=== PATIENT | female | born 1990 | race Caucasian/White ===

== ENCOUNTER 2020-03-17 13:42 | Outpatient (AMBR) | payer MEDICAID, SELFPAY ==
--- NOTE | 2020-02-16 15:56 | PT.ODAYNRPT ---
PT Outpatient Daily Note Date of Service: 02/16/20 OP Daily Note Visit Reasons: right hip joint Outpatient Physical Therapy Treatment Date: 02/16/20 Subjective: My hip was on fire after last visit. She has been doing HEP with variable pain level and a feeling of pulling in the inguinal region. Objective: See F/S for therex Assessment: Improved therex tolerance since last visit on the bike and she was able to do 6' today vs 3' last time but overall high tissue irritability. Plan: Continue per POC Length of Time (minutes) of Treatment: 30 Minutes Office Procedures PT Procedures PT Date of Service: 02/16/20 Therapeutic Exercise 30 minutes: Yes
--- NOTE | 2020-03-10 15:34 | PT.ODAYNRPT ---
PT Outpatient Daily Note Date of Service: 03/10/20 OP Daily Note Visit Reasons: right hip joint Outpatient Physical Therapy Treatment Date: 03/10/20 Subjective: Overall better. She has been doing HEP with variable pain level and a feeling of pulling in the inguinal region. Objective: See F/S for therex Assessment: Improved therex tolerance since last visit on the bike and she was able to do 6' today with overall high tissue irritability. Plan: Continue per POC Length of Time (minutes) of Treatment: 30 Minutes Office Procedures PT Procedures PT Date of Service: 02/16/20 Therapeutic Exercise 30 minutes: Yes PT Procedures PT Date of Service: 03/10/20 Therapeutic Exercise 30 minutes: Yes
--- NOTE | 2020-03-17 16:23 | PT.ODAYNRPT ---
PT Outpatient Daily Note Date of Service: 03/17/20 OP Daily Note Visit Reasons: right hip joint Outpatient Physical Therapy Treatment Date: 03/17/20 Subjective: Increased hip soreness after last visit Objective: See F/S for therex Assessment: Moderate tissue irritability with [place] ball curls and lunging therex. Slow progress with goals due to pain in R hip. Plan: Continue per POC Length of Time (minutes) of Treatment: 30 Minutes Office Procedures PT Procedures PT Date of Service: 02/16/20 Therapeutic Exercise 30 minutes: Yes PT Procedures PT Date of Service: 03/10/20 Therapeutic Exercise 30 minutes: Yes PT Procedures PT Date of Service: 03/17/20 Therapeutic Exercise 30 minutes: Yes
== END 2020-03-17 23:59 | disposition home or self-care (01) ==
PROVIDERS: PCP Orthopaedic Surgery Sports Medicine; Referring Provider Orthopaedic Surgery Sports Medicine; Visit Provider Physician Assistant
DX: M25.551 Pain in right hip (principal); R26.2 Difficulty in walking, not elsewhere classified
CPT/HCPCS: 97110

== ENCOUNTER 2024-09-01 01:34 | Emergency (ER) | payer MEDICAID, SELFPAY ==
[2024-09-01 01:35] VITALS: BMI 28.2
== END 2024-09-01 02:51 | disposition left against medical advice (07) ==
LOC: SERX 03:01
PROVIDERS: Emergency Provider Emergency Medicine
DX: Z53.21 Procedure and treatment not carried out due to patient leaving prior to being seen by health care provider (principal)

== ENCOUNTER → 2025-01-01 | Outpatient (CLI) | payer MEDICAID, SELFPAY ==
--- NOTE | 2025-01-01 13:30 | XR_ITS ---
Examination: Breast ultrasound complete, bilateral Date and time of exam: January 01, 2025 1350 hours INDICATIONS: Preoperative breast surgery Technique: Real-time grayscale ultrasonographic imaging bilateral breasts, including all 4 quadrants as well as nipple retroareolar and axillary regions. Findings: Sonographic images right breast Retroareolar cyst 4 x 3 mm Sonographic images left breast 12:00 cyst 9 x 6 mm IMPRESSION: BI-RADS Category 2: Benign findings
== END | disposition home or self-care (01) ==
PROVIDERS: PCP Physician Assistant; Referring Provider Physician Assistant; Visit Provider Physician Assistant
DX: Z01.818 Encounter for other preprocedural examination (principal)
CPT/HCPCS: 76641

== ENCOUNTER 2025-02-08 12:47 | Emergency (ER) | payer MEDICAID, SELFPAY ==
[2025-02-08 12:49] VITALS: BMI 28.2
--- NOTE | 2025-02-08 13:03 | PD.EDRME ---
Rapid Medical Screening Exam RME Arrival date/time: 02/08/25 12:47 34-year-old female with no known medical history presents to the emergency room with a chief complaint of drainage, redness, warmth to her lower abdominal incision. Patient recently had skin removal surgery that was done in [place] on 12/14/2024. Since then the patient has had issues with infection to the same site and has been on multiple failed outpatient oral antibiotics I have greeted and performed a focused initial assessment of this patient. A comprehensive ED assessment and evaluation of the patient, analysis of all test results, and completion of the medical decision making process will be conducted by additional ED providers. Chief Complaint: General Adult/Misc Complain Vital signs reviewed by provider: Yes
[2025-02-08 14:08] LABS: Lactate (Lactic Acid) 1.3 mMol/L (0.4-2.0)
[2025-02-08 14:14] LABS: Basophils # (Auto) 0.0 Thou/mm3 (0.0-0.2); Basophils % (Auto) 0 % (0-2.5); Eosinophils # (Auto) 0.1 Thou/mm3 (0.0-0.5); Eosinophils % (Auto) 2 % (0-10); Hematocrit 36.1 % (36.0-46.0); Hemoglobin 12.0 g/dL (12.0-16.0); Immature Granulocytes Auto 0.02 Thou/mm3 (0.00-0.00); Lymphocytes # (Auto) 1.9 Thou/mm3 (1.0-4.8); Lymphocytes % (Auto) 26 % (10-50); Mean Corpuscular HGB Conc 33.2 g/dl (31.0-37.0); Mean Corpuscular Hemoglobin 31.4 pg (25.0-35.0); Mean Corpuscular Volume 95 fL (80-100); Monocytes # (Auto) 0.7 Thou/mm3 (0.0-0.8); Monocytes % (Auto) 9 % (0-12); Neutrophils # (Auto) 4.6 Thou/mm3 (1.8-7.7); Neutrophils % (Auto) 62 % (37-80); Nucleated Red Blood Cell # 0.00 Thou/mm3 (0.00-0.00); Nucleated Red Blood Cell % 0 /100 WBC (0); Platelet Count 251 Thou/mm3 (140-440); RDW Standard Deviation 42.7 fL (36.4-46.3); Red Blood Count 3.82 Miln/mm3 (4.00-5.20); White Blood Count 7.4 Thou/mm3 (3.6-11.0)
[2025-02-08 14:40] LABS: Alanine Aminotransferase 16 U/L (10-49); Albumin, Serum 4.2 gm/dL (3.5-5.0); Albumin/Globulin Ratio 2.1 (1.2-2.2); Alkaline Phosphatase 70 U/L (46-116); Anion Gap 9 (7-16); Aspartate Amino Transferase 17 U/L (0-34); BUN/Creatinine Ratio 14 Ratio (12-20); Bilirubin,Total 0.3 mg/dL (0.3-1.2); Blood Urea Nitrogen 10 mg/dL (9-23); Calcium 9.7 mg/dL (8.3-10.6); Calcium (Corrected) 9.7 mg/dL (8.5-10.1); Carbon Dioxide 25.7 mMol/L (20.0-31.0); Chloride 106 mMol/L (98-107); Creatinine (Component) 0.7 mg/dL (0.6-1.3); Estimated Creatinine Clearance 119.2 mL/min (>60); Globulin 2.0 gm/dL (2.3-3.5); Glucose 116 mg/dL (74-106); Osmolality,Calculated 281 (275-295); Potassium 4.6 mMol/L (3.4-5.1); Procalcitonin < 0.04 ng/ml (0.0-0.49); Sodium 141 mMol/L (136-145); Total Protein 6.2 gm/dL (5.7-8.2); eGFR > 60 See Note
[2025-02-08 22:11] VITALS: BP 116/88; PULSE 75; RESP 11; O2SAT 97
[2025-02-08 22:36] VITALS: BP 116/88; PULSE 74; RESP 16; TEMP 36.7; O2SAT 97
--- NOTE | 2025-02-08 22:39 | EDNOTE_ITS ---
ED General RME/HPI General Chief complaint: General Adult/Misc Complain Stated complaint: INFECTION LOWER ABD INCISION; FEVER Time Seen by Provider: 02/08/25 22:41 Arrival date/time: 02/08/25 12:47 RME / HPI RME / HPI narrative: 02/08/25 12:47 34-year-old female with no known medical history presents to the emergency room with a chief complaint of drainage, redness, warmth to her lower abdominal incision. Patient recently had skin removal surgery that was done in [place] on 12/14/2024. Since then the patient has had issues with infection to the same site and has been on multiple failed outpatient oral antibiotics I have greeted and performed a focused initial assessment of this patient. A comprehensive ED assessment and evaluation of the patient, analysis of all test results, and completion of the medical decision making process will be conducted by additional ED providers. Dr. Parham?sj Main ED Evaluation: 34yo female who is s/p abdominal rectus sheath diastasis and repair done in [place] on 01/13/25, was discharged home on antibiotics, who has since been on multiple PO antibiotics including Augmentin x2, Keflex, and most recently Bactrim here with pain along abdominal incision and reported postoperative necrosis. No fever or chills. Reports abdominal pain beneath the incision with a sense of fullness. No V/D. PMH unremarkable. PSH recent rectus sheath repair. No alcoholism or illicit drug abuse. Related Data Previous Rx's ?Medication ?Instructions ?Recorded albuterol sulfate 2.5 mg/3 mL 2.5 mg (3 mL) inhalation QID PRN 01/08/22 (0.083 %) solution for nebulization shortness of breat h or wheezing #90 mL azithromycin 250 mg tablet See Rx Instructions PO .COM PLEX #6 01/08/22 tabs naproxen 500 mg tablet (Naprosyn) 500 mg PO BID #30 ta bs 01/08/22 albuterol sulfate 90 mcg/actuation 2 puff inhalation Q ID #8.5 grams 05/29/22 aerosol inhaler ibuprofen 600 mg tablet 600 mg PO QID #30 tabs 05/29 Allergies Allergy/AdvReac Type Severity Reaction Status Date / Time latex Allergy Intermediate RASH AND Verified 02/08/25 12:52 ITCHING adhesive tape Allergy Blister Verified 02/08/25 12:52 Review of Systems Review of Systems Systems Reviewed: All systems reviewed, normal except as documented ED Exam Narrative Physical exam: GENERAL APPEARANCE: alert and oriented x 4, well-developed, well-nourished, nontoxic, no acute distress VITALS: All vitals were reviewed and the pulse ox is 97% on room air, which is normal according to my interpretation. HEENT: Normocephalic, atraumatic; pupils equal, round, reactive to light; EOMI; mucous membranes pink, moist; oropharynx clear NECK: Supple LUNGS: CTABL; no wheezes, no rales, no rhonchi HEART: Regular rate, regular rhythm; normal S1, S2; no murmurs ABDOMEN: non distended; normal BS; soft, no tenderness, no guarding BACK: no CVA tenderness EXTREMITIES: atraumatic; no edema NEUROLOGIC: awake; alert and oriented x4; cranial nerves II-XII grossly intact; no focal sensory or motor deficits PSYCHIATRIC: appropriate mood and affect SKIN: warm, dry; horizontal incision extending from the mid axillary line bilat erally towards the center of the suprapubic region with areas of granulating tissue and erythema, but no gross perulent drainage; no dehiscence; fluctuance noted below the suture line with mild tenderness Course Quality Measures none Orders Category Date Time Status CT Screening NOW Care 02/08/25 23:[address] abdomen pelvis w con Stat Exams 02/08/25 23:00 Taken Blood Culture (Lab) Stat Lab 02/08/25 13:49 Received CBC Stat Lab 02/08/25 13:43 Completed CBC [CBC] Stat Lab 02/08/25 23:25 Completed CMP [Comprehensive Metabolic Panel] Stat Lab 02/08/25 13:43 Completed CMP [Comprehensive Metabolic Panel] Stat Lab 02/08/25 23:25 Completed HCG,Qualitative Serum Stat Lab 02/08/25 23:25 Completed Lactate (Lactic Acid) Stat Lab 02/08/25 13:43 Completed Procalcitonin Stat Lab 02/08/25 13:43 Completed Urinalysis, C/S if Indicated Stat Lab 02/08/25 00:53 Completed Urine Culture Stat Lab 02/08/25 00:53 Received Wound Culture and Gram Stain Stat Lab 02/08/25 13:08 Results Vital Signs Vital signs: Vital Signs Pulse Rate 75 02/08/25 22:11 Respiratory Rate 11 L 02/08/25 22:11 Blood Pressure 116/88 H 02/08/25 22:11 Pulse Oximetry (%) 97 02/08/25 22:11 Discharge Plan Plan Patient Disposition: HOME (Self Care) Prescriptions/Referrals Prescriptions/Med Rec: No Action azithromycin 250 mg tablet See Rx Instructions .ROUTE .COMPLEX Qty: 6 0RF Rx Instructions: For 250 mg dose pack: take 500 mg today (day 1), then 250 mg for 4 days (days 2-5) albuterol sulfate 2.5 mg /3 mL (0.083 %) solution for nebulization 2.5 mg inhalation QID PRN (Reason: shortness of breath or wheezing) Qty: 90 0RF naproxen [Naprosyn] 500 mg tablet 500 mg PO BID Qty: 30 0RF albuterol sulfate 90 mcg/actuation HFA aerosol inhaler 2 puff inhalation QID Qty: 8.5 0RF ibuprofen 600 mg tablet 600 mg PO QID Qty: 30 0RF Referrals: Susan Machado COMPLIANCE NURSE [Primary Care Provider] - In 1 week Problem List Clinical Impression: Postoperative seroma, UTI (urinary tract infection), Encounter for post surgical wound check Patient/Caregiver Discharge Instructions Discharge Activity: activity as tolerated Diet Instructions: Force fluids/medication as directed. Education Materials: Urinary Tract Infections in Women Additional Instructions: Discontinue oral antibiotics. Apply warm compresses and utilize abdominal binder for support. Topical antibiotics as directed. Follow-up with primary care doctor in 3 to 5 days return if worsening. Print Language: Austrian Stand Alone Forms: Makayla Award Info., Patient Portal Info Letter MDM Narrative [facility] hospital course: Scribe Attestation: 02/08/25 - Sari Romano am scribing for and in the presence of Dr. Parham. 34yo female who is s/p abdominal rectus sheath diastasis and repair done in [place] on 01/13/25, was discharged home on antibiotics, who has since been on multiple PO antibiotics including Augmentin x2, Keflex, and most recently Bactrim here with pain along abdominal incision and reported postoperative necrosis. No fever or chills. Please see PE findings. Lab markers including CBC, chemistries, and UA unremarkable excluding mild UTI. Gram stain of scant discharge from the abdomen was performed and was negative for WBCs or bacteria. Patient is nontoxic without signs of underlying sepsis. Will treat empirically with one dose of Rocephin in an effort to clear urine, as patient has been on numerous antibiotics. Will discontinue oral antibiotics in an effort to prevent C. difficile. Patient referred for CT abdomen pelvis without discrete abscess, although shows postoperative seromas within the lateral gutters. Patient is considered stable for discharge after extended period of observation. Will place patient on topical bacitracin and instruct her to follow-up with PMD in 3-5 days. Clinical Information Provided by patient Medical Records Reviewed [facility] (Per chart review, patient has no relevant previous ED visits.) Meds/Rx Considered, not Ordered None Labs/Rad/Tests considered, not Ordered None Chronic Illness/Social Conditions which may negatively complicate care or outcome(s)-explain: None or not applicable EKG EKG not done Lab Interpretation Labs: interpreted by in Imaging Imaging interpretation: interpreted by in Radiology reports / interpretation(s): Telerad Preliminary Report Draft Patient: ART LAY Record#: [id number] Birthdate: 1990 Age/Sex: 34 / F Location: [facility] Attending Dr: Ordering Physician: Date of Service: Procedure(s): Accession Number(s): cc: ~ CT scan of the abdomen and pelvis with intravenous contrast (axial sections with sagittal and coronal reformats) February 09, 2025 0116 hours Clinical History: r/o abscess formation No prior study is available for comparison. Findings: The lung bases are clear. The gallbladder is surgically absent. The liver, pancreas, spleen, kidneys and adrenals are unremarkable. No evidence of bowel obstruction. A moderate amount of fecal matter is noted in a colon. The appendix is not visualized and may be surgically absent. There is no mesenteric or retroperitoneal adenopathy. The urinary bladder is unremarkable. There is no free fluid or free air. There is subcutaneous soft tissue induration in the abdominal and pelvic wall, likely representing a postoperative scar. There is a subcutaneous fluid collection, measuring 4 x 1.5 cm in the abdominal wall. There is another fluid collection, measuring 3 x 2 cm in the pelvic wall. The osseous structures are unremarkable. Impression: No evidence of bowel obstruction, free air or abscess. Fluid collections in the abdominal and pelvic cameron, which may represent postoperative seromas. However the possibility of infection / abscess cannot be excluded. Recommend clinical correlation. Other findings as described above. Report Electronically Signed By: Mitchell Rosario 02/09/2025 4:06:49 AM [EST] Medication Administration(s) none Diagnosis Differential diagnosis: abscess, seroma, postoperative infection Most likely dx, and/or detailed dx discussion: see clinical impression above Dispositon Disposition: Discharge Home
[2025-02-08 23:00] VITALS: BP 106/86; PULSE 70; RESP 13; O2SAT 98
--- NOTE | 2025-02-08 23:00 | XR_ITS ---
Examination: CT abdomen with intravenous contrast CT pelvis with intravenous contrast 2-D coronal reconstructions 2-D sagittal reconstructions Date and time of exam:February 09, 2025, 0116 hours, comparison May 07, 2020. INDICATIONS: Infection abdominal pain at incision site in the abdomen today, surgery January 13, 2025 CTDI: vol (mGy) 9.18 DLP: (mGycm) 515. Technique: Multiple axial sections of the abdomen and pelvis have been obtained. 64 slice high-resolution scanner used. 3 mm axial sections have been obtained, post intravenous injection 60 cc Isovue 370 2-D sagittal, coronal reconstructions obtained. Low dose protocols were performed. One or more of the following dose reduction techniques were used; automated exposure control, adjustment of the mA and/or KV according to patient size, use of iterative reconstruction technique. Findings: No focal liver or splenic lesions. Absent gallbladder. No pancreatic or adrenal mass. No renal or ureteral calculi, no hydronephrosis. Aorta normal size. No bowel obstruction. No pericecal inflammatory change. Retroverted uterus. Urinary bladder is intact. Edema in the anterior abdominal wall subcutaneous fat. Fluid collection 4 x 1.5 cm anterior abdominal wall, axial image 111 Fluid collection subcutaneous tissue anterior pelvic wall 3 x 2 cm, image 199 IMPRESSION: No abdominal or pelvic abscess. Fluid collections in the anterior abdominal wall and anterior pelvic wall as above, consider seromas, hematomas, abscess less likely but not excluded
[2025-02-08 23:40] LABS: Basophils # (Auto) 0.0 Thou/mm3 (0.0-0.2); Basophils % (Auto) 0 % (0-2.5); Eosinophils # (Auto) 0.1 Thou/mm3 (0.0-0.5); Eosinophils % (Auto) 2 % (0-10); Hematocrit 33.9 % (36.0-46.0); Hemoglobin 11.6 g/dL (12.0-16.0); Immature Granulocytes Auto 0.02 Thou/mm3 (0.00-0.00); Lymphocytes # (Auto) 2.1 Thou/mm3 (1.0-4.8); Lymphocytes % (Auto) 27 % (10-50); Mean Corpuscular HGB Conc 34.2 g/dl (31.0-37.0); Mean Corpuscular Hemoglobin 31.7 pg (25.0-35.0); Mean Corpuscular Volume 93 fL (80-100); Monocytes # (Auto) 0.7 Thou/mm3 (0.0-0.8); Monocytes % (Auto) 9 % (0-12); Neutrophils # (Auto) 4.7 Thou/mm3 (1.8-7.7); Neutrophils % (Auto) 61 % (37-80); Nucleated Red Blood Cell # 0.00 Thou/mm3 (0.00-0.00); Nucleated Red Blood Cell % 0 /100 WBC (0); Platelet Count 241 Thou/mm3 (140-440); RDW Standard Deviation 42.3 fL (36.4-46.3); Red Blood Count 3.66 Miln/mm3 (4.00-5.20); White Blood Count 7.7 Thou/mm3 (3.6-11.0)
[2025-02-08 23:50] LABS: HCG,Qualitative Serum Negative
[2025-02-08 23:58] LABS: Alanine Aminotransferase 16 U/L (10-49); Albumin, Serum 4.3 gm/dL (3.5-5.0); Albumin/Globulin Ratio 2.3 (1.2-2.2); Alkaline Phosphatase 63 U/L (46-116); Anion Gap 9 (7-16); Aspartate Amino Transferase 17 U/L (0-34); BUN/Creatinine Ratio 13 Ratio (12-20); Bilirubin,Total 0.5 mg/dL (0.3-1.2); Blood Urea Nitrogen 9 mg/dL (9-23); Calcium 9.5 mg/dL (8.3-10.6); Calcium (Corrected) 9.5 mg/dL (8.5-10.1); Carbon Dioxide 26.7 mMol/L (20.0-31.0); Chloride 105 mMol/L (98-107); Creatinine (Component) 0.7 mg/dL (0.6-1.3); Estimated Creatinine Clearance 119.2 mL/min (>60); Globulin 1.9 gm/dL (2.3-3.5); Glucose 87 mg/dL (74-106); Osmolality,Calculated 278 (275-295); Potassium 4.2 mMol/L (3.4-5.1); Sodium 141 mMol/L (136-145); Total Protein 6.2 gm/dL (5.7-8.2); eGFR > 60 See Note
[2025-02-09 00:03] VITALS: PULSE 66; RESP 14; O2SAT 99
[2025-02-09 01:00] VITALS: BP 116/75; PULSE 70; RESP 16; O2SAT 97
[2025-02-09 01:01] LABS: Collection Type, Urine Clean Catch
[2025-02-09 01:09] LABS: Bilirubin,Urine Negative (Negative); Blood,Urine 3+ (Negative); Clarity,Urine Clear (Clear/Hazy); Color,Urine Yellow (Lt Yel-Yel); Glucose, Urine Negative (Negative); Hyaline Casts,Urine < 1 /hpf (0-1); Ketones,Urine Negative (Negative); Leukocyte Esterase,Urine Positive (Negative); Nitrite,Urine Negative (Negative); PH,Urine 6.0 (5.0-7.0); Protein,Urine Trace (Neg - Trace); RBC,Urine 303 /hpf (0-3); Specific Gravity,Urine 1.023 (1.001-1.035); Squamous Epithelial Cell,Urine 2 /hpf (0-5); Urobilinogen,Urine Negative mg/dL (0.0-1.0); WBC,Urine 19 /hpf (0-5)
[2025-02-09 01:14] LABS: Culture Indicated,Urine Yes
--- NOTE | 2025-02-09 04:07 | PRELIM_ITS ---
CT scan of the abdomen and pelvis with intravenous contrast (axial sections with sagittal and coronal reformats) February 09, 2025 0116 hours Clinical History: r/o abscess formation No prior study is available for comparison. Findings: The lung bases are clear. The gallbladder is surgically absent. The liver, pancreas, spleen, kidneys and adrenals are unremarkable. No evidence of bowel obstruction. A moderate amount of fecal matter is noted in a colon. The appendix is not visualized and may be surgically absent. There is no mesenteric or retroperitoneal adenopathy. The urinary bladder is unremarkable. There is no free fluid or free air. There is subcutaneous soft tissue induration in the abdominal and pelvic wall, likely representing a postoperative scar. There is a subcutaneous fluid collection, measuring 4 x 1.5 cm in the abdominal wall. There is another fluid collection, measuring 3 x 2 cm in the pelvic wall. The osseous structures are unremarkable. Impression: No evidence of bowel obstruction, free air or abscess. Fluid collections in the abdominal and pelvic cameron, which may represent postoperative seromas. However the possibility of infection / abscess cannot be excluded. Recommend clinical correlation. Other findings as described above. Report Electronically Signed By: Mitchell Rosario 02/09/2025 4:06:49 AM [EST]
[2025-02-09] MEDS: cefTRIAXone/D5w 1gm IV premix 1 GM/50 ML BAG IV (05:27)
[2025-02-09 06:06] VITALS: PULSE 70; RESP 19; TEMP 37.1; O2SAT 98
== END 2025-02-09 06:06 | disposition home or self-care (01) ==
PROVIDERS: Nurse Practitioner Family; Emergency Provider Emergency Medicine; PCP Nurse Practitioner Family
DX: L76.34 Postprocedural seroma of skin and subcutaneous tissue following other procedure (principal); N39.0 Urinary tract infection, site not specified
CPT/HCPCS: 36415; 74177; 80053; 81001; 83605; 84145; 84703; 85025; 87040; 87070; 87077; 87086; 87186; 87205; 96365; 99284; A4649; J0696; Q9967

== ENCOUNTER → 2025-02-25 | Outpatient (CLI) | payer OTHER, SELFPAY ==
--- NOTE | 2025-02-25 14:30 | XR_ITS ---
Examination: MRI cervical spine without intravenous contrast Date and time of exam: February 25, 2025 1447 hours INDICATIONS: Neck pain radiating down the entire right arm paresthesias in the right hand weakness 6 years post lifting injury at work COMPARISON: January 19, 2022 Technique: Multiple axial and sagittal sections of the cervical spine to been obtained. T2 weighted sagittal sections, TR 3, 270, TE 117 T1-weighted sagittal sections, TR 500, TE 11 T1-weighted axial sections, TR 607, TE 12, axial sections TR 18, TE 27 and T2 weighted transverse sections, TR 3920, TE 122. Findings: Adequate alignment cervical vertebral bodies on the lateral view No cervical fracture. Intact odontoid No localized enlargement cervical cord. C2-C3 no disc protrusion C3-C4 no disc protrusion C4-C5 2 mm central osteophyte disc complex, mild left neural foraminal stenosis C5-C6 2 mm central osteophyte disc complex, mild bilateral neural foraminal stenosis C6-C7 mild right neural foraminal stenosis C7-T1 moderate bilateral neural foraminal stenosis IMPRESSION: C4-C5 mild left neural foraminal stenosis C5-C6 mild bilateral neural foraminal stenosis C6-C7 mild right neural foraminal stenosis
--- NOTE | 2025-02-25 15:00 | XR_ITS ---
Examination: MRI lumbar spine without contrast Date and time of exam: February 25, 2025 1508 hours INDICATIONS: Lower back pain radiating down both legs weakness in the right leg leg paresthesias beginning 6 years ago post lifting injury at work Technique: Multiple MRI axial and sagittal sections lumbar spine. Sagittal T2-weighted images, TR 3500, TE 118 T1 weighted transverse sections, TR 688 T8.5, T2-weighted sagittal sections T1 weighted sagittal sections TR 621, TE 30 T2 axial sections, TR 4, 190, TE 84. Findings: Adequate alignment lumbar vertebral bodies Disc desiccation mild disc narrowing L4-L5 No spondylolisthesis Normal marrow signal lumbar vertebral bodies L5-S1 no disc protrusion L4-L5 4 mm central lumbar disc bulge indenting the ventral margin thecal sac Annular posterior central disc tear at the L4-L5 level More cephalad levels unremarkable IMPRESSION: L4-L5 4 mm central lumbar disc bulge L4-L5 annular posterior central disc tear
--- NOTE | 2025-02-25 15:37 | XR_ITS ---
Examination: Cervical spine 4 views Technique: AP, lateral, standing lateral flexion, standing lateral extension, 4 views Date and time: February 25, 2025 1558 hrs. Indications: Work injury 7 years ago to the neck with neck pain. Findings: Satisfactory alignment cervical vertebral bodies Adequate range of motion, flexion and extension No fracture No arthritic change Impression: No fracture No arthritic change Please see the MRI cervical spine report today
--- NOTE | 2025-02-25 15:37 | XR_ITS ---
Examination: Lumbar spine 4 views Technique: Lumbar spine AP, lateral, standing lateral flexion, standing lateral extension Exam date and time: February 25, 2025 1558 hrs. Indications: Injury to lower back several years ago with lower back pain. Findings: Adequate alignment lumbar vertebral bodies on the lateral view Mild diffuse lumbar disc narrowing No spondylolisthesis Decreased range of motion to flexion and extension Impression: No lumbar fracture. Mild diffuse lumbar disc narrowing.
== END | disposition home or self-care (01) ==
LOC: SMRI 13:45
PROVIDERS: Referring Provider Specialist; Visit Provider Specialist
DX: S39.012A Strain of muscle, fascia and tendon of lower back, initial encounter (principal); S31.010A Laceration without foreign body of lower back and pelvis without penetration into retroperitoneum, initial encounter; X58.XXXA Exposure to other specified factors, initial encounter; M48.02 Spinal stenosis, cervical region; M51.360 Other intervertebral disc degeneration, lumbar region with discogenic back pain only; M48.061 Spinal stenosis, lumbar region without neurogenic claudication
CPT/HCPCS: 72040; 72110; 72141; 72148

== ENCOUNTER → 2025-03-11 | Outpatient (CLI) | payer MEDICAID, SELFPAY | END | disposition home or self-care (01) | PROVIDERS: PCP Physician Assistant; Referring Provider Physician Assistant; Visit Provider Student in an Organized Health Care Education/Training Program | DX: T81.89XA Other complications of procedures, not elsewhere classified, initial encounter (principal); S31.109D Unspecified open wound of abdominal wall, unspecified quadrant without penetration into peritoneal cavity, subsequent encounter; X58.XXXD Exposure to other specified factors, subsequent encounter; K59.09 Other constipation; M79.7 Fibromyalgia; F41.9 Anxiety disorder, unspecified; J45.998 Other asthma; F17.200 Nicotine dependence, unspecified, uncomplicated; M10.9 Gout, unspecified; F50.20 Bulimia nervosa, unspecified | CPT/HCPCS: 97597; 99213; A9270; G0463 ==

== ENCOUNTER 2025-03-13 16:22 | Emergency (ER) | payer MEDICAID, SELFPAY ==
[2025-03-13 16:23] VITALS: BMI 28.2
[2025-03-13 16:37] VITALS: BP 137/81; PULSE 89; RESP 18; TEMP 37.2; O2SAT 98
--- NOTE | 2025-03-13 16:47 | XR_ITS ---
Examination: CT abdomen with intravenous contrast CT pelvis with intravenous contrast 2-D coronal reconstructions 2-D sagittal reconstructions Date and time of exam:March 13, 2025, 1927 hrs., Comparison February 09, 2025 Indications: Post abdominal surgery, large palpable lumps on the abdomen 3 months. CTDI: vol (mGy) 18.83 DLP: (mGycm) 812 Technique: Multiple axial sections of the abdomen and pelvis have been obtained. 64 slice high-resolution scanner used. 3 mm axial sections have been obtained, post intravenous injection 60 cc Isovue-370 2-D sagittal, coronal reconstructions obtained. Low dose protocols were performed. One or more of the following dose reduction techniques were used; automated exposure control, adjustment of the mA and/or KV according to patient size, use of iterative reconstruction technique. Findings: No focal liver or splenic lesion Absent gallbladder No pancreatic or adrenal mass No renal or ureteral calculi, no hydronephrosis No bowel obstruction Normal appendix No diverticulitis No pelvic mass Cellulitis pattern in the anterior pelvic wall but no current significant fluid collection Impression: The fluid collection in the anterior pelvic wall on the February 09, 2025 exam is no longer identified There is a mild cellulitis pattern in the anterior pelvic wall
--- NOTE | 2025-03-13 16:50 | EDNOTE_ITS ---
ED Abdominal Pain RME/HPI General Chief Complaint: Abdominal Pain Stated complaint: MID ABD PAIN X1 MONTH Time seen by provider: 03/13/25 16:31 Arrival date/time: 03/13/25 16:22 RME / HPI RME / HPI narrative: 34-year-old female patient came in for evaluation regarding mid abdominal pain. She has been having mid abdominal pain for at least a month now getting worse today, patient think he pulled an abdominal muscle again. Patient had a surgery done in [place] for abdominoplasty. 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 Patient denies any fever denies any vomiting denies any other complaints no medication was taken prior to ER visit. Related Data Previous Rx's ?Medication ?Instructions ?Recorded albuterol sulfate 2.5 mg/3 mL 2.5 mg (3 mL) inhalation QID PRN 01/08/22 (0.083 %) solution for nebulization shortness of breat h or wheezing #90 mL azithromycin 250 mg tablet See Rx Instructions PO .COM PLEX #6 01/08/22 tabs naproxen 500 mg tablet (Naprosyn) 500 mg PO BID #30 ta bs 01/08/22 albuterol sulfate 90 mcg/actuation 2 puff inhalation Q ID #8.5 grams 05/29/22 aerosol inhaler ibuprofen 600 mg tablet 600 mg PO QID #30 tabs 05/29 acetaminophen 300 mg-codeine 30 mg 1 tab PO Q8H PRN pa in #21 tabs 03/13/25 tablet Allergies Allergy/AdvReac Type Severity Reaction Status Date / Time latex Allergy Intermediate RASH AND Verified 03/13/25 16:28 ITCHING adhesive tape Allergy Blister Verified 03/13/25 16:28 Review of Systems Review of Systems Narrative Review of Systems: Review of system reviewed and within normal limits except mentioned in HPI ED Exam Narrative Physical exam: VITAL SIGNS: Reviewed. GENERAL APPEARANCE: Alert and interactive, follows commands, no acute distress, HEAD AND FACE: Non-traumatic. ENT: PERRL, pink conjunctivitis, eyelid no trauma, Mucous membrane moist. NECK: Supple, nontender, no nuchal rigidity. ABDOMEN: Soft, positive bowel sounds, nondistended, no guarding, mid abdominal wall tenderness no redness noted, no rebound, no masses, she does not want me to see her lower abdominal wall infection or wound chronic. RECTAL: Deferred. GENITAL: Deferred. NEUROLOGICAL: Gross motor function intact sensory function intact, Appropriate for age. MUSCULOSKELETAL: low back nontender, full range of motion. EXTREMITIES: Nontender, full range of motion. SKIN: Color pink, dry, no rash, no lacerations, no abrasions, no contusions. LYMPHATICS: Deferred. Course Quality Measures none Orders Category Date Time Status CT Screening NOW Care 03/13/25 16:48 Active Insert IV NOW Care 03/13/25 19:[address] abdomen pelvis w con Stat Exams 03/13/25 16:47 Completed CBC [CBC] Stat Lab 03/13/25 17:05 Completed CMP [Comprehensive Metabolic Panel] Stat Lab 03/13/25 17:05 Completed HCG Qualitative,Urine Stat Lab 03/13/25 17:21 Completed Lipase Stat Lab 03/13/25 17:05 Completed UA, C/S IF [Urinalysis, C/S if Indicated] Stat Lab 03/13/25 17:21 Completed Ketorolac Inj [Toradol Inj] Med 03/13/25 16:57 Discontinued 30 mg IM X1 ONE Ketorolac Inj [Toradol Inj] Med 03/13/25 16:48 Discontinued 30 mg IVP X1 ONE Vital Signs Vital signs: Vital Signs Temperature 98.9 F 03/13/25 16:37 Pulse Rate 89 03/13/25 16:37 Respiratory Rate 18 03/13/25 16:37 Blood Pressure 137/81 H 03/13/25 16:37 Pulse Oximetry (%) 98 03/13/25 16:37 Oxygen Delivery Method CPAP 03/13/25 16:37 Abdominal Pain [facility] Narrative [facility] Narrative:: 34-year-old female patient came in for evaluation regarding mid abdominal pain. She has been having mid abdominal pain for at least a month now getting worse today, patient think he pulled an abdominal muscle again. Patient had a surgery done in [place] for abdominoplasty. 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 Patient denies any fever denies any vomiting denies any other complaints no medication was taken prior to ER visit. Patient's workup today all came back with no leukocytosis, urinalysis is a contaminated urine sample. CT scan of the abdomen and pelvis showed The fluid collection in the anterior pelvic wall on the February 09, 2025 exam is no longer identified There is a mild cellulitis pattern in the anterior pelvic wall Patient was given a copy of her CT scan results. Patient was advised to continue or finish the clindamycin that was prescribed by PCP earlier. Patient was also advised to continue doing dressing with triple antibiotic. Patient was also advised if she can follow-up with her surgeon in [place]. I also told her if she can ask her PCP to do outpatient MRI of the abdominal wall. Patient agrees with the plan. Stable for discharge home Patient data External records reviewed:: None Clinical information provided by:: patient Social determinants that could affect healthcare access:: none Patient has the following chronic illnesses:: Status post recent abdominoplasty How is presenting disease/condition affected by chronic disease/condition?: no chronic disease Evaluation data The following diagnostics were reviewed and interpreted by me:: lab results and radiology exam(s) Lab and/or radiology exams considered but not ordered:: None Interpretation Summary: See results MDM Medications / Prescriptions Medications or Prescriptions considered but not ordered:: None Medication administrations:: Medication Administration History Discontinued Medications Ketorolac Tromethamine (Ketorolac Inj 30 Mg/Ml Vial) 30 mg IVP X1 ONE Stop: 03/13/25 16:49 Last Admin: 03/13/25 17:00 Dose: Not Given Documented By: SANDRA Non-Admin Reason: Cancelled by Provider Ketorolac Tromethamine (Ketorolac Inj 30 Mg/Ml Vial) 30 mg IM X1 ONE Stop: 03/13/25 16:58 Last Admin: 03/13/25 17:02 Dose: 30 mg Documented By: SANDRA Comments: PT STATES NOT Toradol IM Consultations Consultation(s) initiated? 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 Discharge instructions specifically effects, indications for sooner follow up or return to the emergency department, and the expected course of current diagnosis. Patient condition: Stable Discharge Plan Plan Patient Disposition: HOME (Self Care) Discharge Disposition comment: Stable Prescriptions/Referrals Prescriptions/Med Rec: New acetaminophen-codeine 300-30 mg tablet 1 tab PO Q8H PRN (Reason: pain) Qty: 21 0RF No Action azithromycin 250 mg tablet See Rx Instructions .ROUTE .COMPLEX Qty: 6 0RF Rx Instructions: For 250 mg dose pack: take 500 mg today (day 1), then 250 mg for 4 days (days 2-5) albuterol sulfate 2.5 mg /3 mL (0.083 %) solution for nebulization 2.5 mg inhalation QID PRN (Reason: shortness of breath or wheezing) Qty: 90 0RF naproxen [Naprosyn] 500 mg tablet 500 mg PO BID Qty: 30 0RF albuterol sulfate 90 mcg/actuation HFA aerosol inhaler 2 puff inhalation QID Qty: 8.5 0RF ibuprofen 600 mg tablet 600 mg PO QID Qty: 30 0RF Referrals: No Primary/Family,Physician [Primary Care Provider] - In 1 week Problem List Clinical Impression: Abdominal wall pain, Surgical wound present Patient/Caregiver Discharge Instructions Discharge Activity: activity as tolerated Education Materials: Abdominal Pain Additional Instructions: Thank you for the opportunity for serving you today. You are stable for discharged . You are advised to: Follow-up with your PCP in 1 to 2 days Return to ED for worsening of symptoms Increase oral fluids Take medication as prescribed Finish your antibiotic that was prescribed earlier by your doctor Continue daily dressing with antibiotic cream Ask your PCP to do outpatient MRI of your abdominal wall to rule out muscle diastasis . If possible pls follow-up with your plastic surgeon in [place] Print Language: Albanian Stand Alone Forms: Makayla Award Info., Patient Portal Info Letter MARVEL/YONAS Supervising Physician MARVEL/YONAS Supervising Physician: MD Rosalino
[2025-03-13] MEDS: KETOROLAC INJ 30 MG/ML VIAL IM (17:02)
[2025-03-13 17:23] LABS: Basophils # (Auto) 0.0 Thou/mm3 (0.0-0.2); Basophils % (Auto) 0 % (0-2.5); Eosinophils # (Auto) 0.1 Thou/mm3 (0.0-0.5); Eosinophils % (Auto) 2 % (0-10); Hematocrit 38.0 % (36.0-46.0); Hemoglobin 12.9 g/dL (12.0-16.0); Immature Granulocytes Auto 0.03 Thou/mm3 (0.00-0.00); Lymphocytes # (Auto) 2.4 Thou/mm3 (1.0-4.8); Lymphocytes % (Auto) 29 % (10-50); Mean Corpuscular HGB Conc 33.9 g/dl (31.0-37.0); Mean Corpuscular Hemoglobin 31.2 pg (25.0-35.0); Mean Corpuscular Volume 92 fL (80-100); Monocytes # (Auto) 0.6 Thou/mm3 (0.0-0.8); Monocytes % (Auto) 7 % (0-12); Neutrophils # (Auto) 5.2 Thou/mm3 (1.8-7.7); Neutrophils % (Auto) 62 % (37-80); Nucleated Red Blood Cell # 0.00 Thou/mm3 (0.00-0.00); Nucleated Red Blood Cell % 0 /100 WBC (0); Platelet Count 258 Thou/mm3 (140-440); RDW Standard Deviation 39.6 fL (36.4-46.3); Red Blood Count 4.14 Miln/mm3 (4.00-5.20); White Blood Count 8.4 Thou/mm3 (3.6-11.0)
[2025-03-13 17:41] LABS: Collection Type, Urine Clean Catch
[2025-03-13 17:42] LABS: Alanine Aminotransferase 33 U/L (10-49); Albumin, Serum 4.4 gm/dL (3.5-5.0); Albumin/Globulin Ratio 2.0 (1.2-2.2); Alkaline Phosphatase 86 U/L (46-116); Anion Gap 8 (7-16); Aspartate Amino Transferase 16 U/L (0-34); BUN/Creatinine Ratio 17 Ratio (12-20); Bilirubin,Total 0.3 mg/dL (0.3-1.2); Blood Urea Nitrogen 10 mg/dL (9-23); Calcium 9.6 mg/dL (8.3-10.6); Calcium (Corrected) 9.6 mg/dL (8.5-10.1); Carbon Dioxide 29.5 mMol/L (20.0-31.0); Chloride 107 mMol/L (98-107); Creatinine (Component) 0.6 mg/dL (0.6-1.3); Estimated Creatinine Clearance 139.1 mL/min (>60); Globulin 2.2 gm/dL (2.3-3.5); Glucose 114 mg/dL (74-106); Lipase 40 U/L (12-53); Osmolality,Calculated 286 (275-295); Potassium 4.6 mMol/L (3.4-5.1); Sodium 144 mMol/L (136-145); Total Protein 6.6 gm/dL (5.7-8.2); eGFR > 60 See Note
[2025-03-13 17:59] LABS: Bacteria,Urine 1+; Bilirubin,Urine Negative (Negative); Blood,Urine Negative (Negative); Clarity,Urine Turbid (Clear/Hazy); Color,Urine Yellow (Lt Yel-Yel); Culture Indicated,Urine Contaminated; Glucose, Urine Negative (Negative); Ketones,Urine Negative (Negative); Leukocyte Esterase,Urine Positive (Negative); Nitrite,Urine Negative (Negative); PH,Urine 7.0 (5.0-7.0); Protein,Urine 1+ (Neg - Trace); RBC,Urine 5 /hpf (0-3); Specific Gravity,Urine 1.031 (1.001-1.035); Squamous Epithelial Cell,Urine 50 /hpf (0-5); Transitional Epi Cells,Urine 2 /hpf (0-5); Urobilinogen,Urine 2.0 mg/dL (0.0-1.0); WBC,Urine 120 /hpf (0-5)
[2025-03-13 19:07] LABS: HCG Qualitative,Urine Negative
== END 2025-03-13 21:35 | disposition home or self-care (01) ==
PROVIDERS: Nurse Practitioner Family; Emergency Provider Emergency Medicine
DX: T81.89XA Other complications of procedures, not elsewhere classified, initial encounter (principal); R10.9 Unspecified abdominal pain; Y83.8 Other surgical procedures as the cause of abnormal reaction of the patient, or of later complication, without mention of misadventure at the time of the procedure
CPT/HCPCS: 36415; 74177; 80053; 81001; 81025; 83690; 85025; 96372; 99284; A4649; J1885; Q9967

== ENCOUNTER → 2025-03-18 | Outpatient (CLI) | payer MEDICAID, SELFPAY | END | disposition home or self-care (01) | LOC: SWHD 09:17 | PROVIDERS: PCP Physician Assistant; Referring Provider Physician Assistant; Visit Provider Student in an Organized Health Care Education/Training Program | DX: T81.89XD Other complications of procedures, not elsewhere classified, subsequent encounter (principal); S31.109D Unspecified open wound of abdominal wall, unspecified quadrant without penetration into peritoneal cavity, subsequent encounter; X58.XXXD Exposure to other specified factors, subsequent encounter; K59.09 Other constipation; M79.7 Fibromyalgia; J45.998 Other asthma; F17.200 Nicotine dependence, unspecified, uncomplicated; M10.9 Gout, unspecified; F50.20 Bulimia nervosa, unspecified | CPT/HCPCS: 99213; G0463 ==

== ENCOUNTER → 2025-04-01 | Outpatient (CLI) | payer MEDICAID, SELFPAY | END | disposition home or self-care (01) | LOC: SWHD 09:57 | PROVIDERS: PCP Physician Assistant; Referring Provider Physician Assistant; Visit Provider Student in an Organized Health Care Education/Training Program | DX: T81.89XD Other complications of procedures, not elsewhere classified, subsequent encounter (principal); S31.109D Unspecified open wound of abdominal wall, unspecified quadrant without penetration into peritoneal cavity, subsequent encounter; X58.XXXD Exposure to other specified factors, subsequent encounter; K59.09 Other constipation; M79.7 Fibromyalgia; J45.998 Other asthma; F17.200 Nicotine dependence, unspecified, uncomplicated; M10.9 Gout, unspecified; F50.20 Bulimia nervosa, unspecified | CPT/HCPCS: 99212; G0463 ==